=== PATIENT | male | born 1985 | race African-American/Black ===

== ENCOUNTER 2023-10-30 08:48 | Emergency (ER) | payer OTHER ==
[~2023-10-30] VITALS: Ht 175.3 cm; Wt 91.2 kg
[2023-10-30 08:56] VITALS: BP 173/106; PULSE 91; RESP 16; TEMP 98.7; O2SAT 95
[2023-10-30 09:16] VITALS: O2SAT 95
[2023-10-30] MEDS ORDERED: ONDA-188 SL (09:37)
[2023-10-30] MEDS ORDERED: HYDR-4004 PO (09:37)
[2023-10-30] MEDS: ONDANSETRON 4 MG ODT PO ONE (09:46)
[2023-10-30] MEDS: CLONIDINE HYDROCHLORIDE 0.1 MG TAB PO ONE (09:47)
[2023-10-30 10:17] VITALS: BP 146/98; PULSE 78; RESP 16; TEMP 98.3; O2SAT 99
[2023-10-30 10:36] LABS: FLU A ANTIGEN negative (NEGATIVE); FLU B ANTIGEN negative (NEGATIVE)
== END 2023-10-30 10:17 | disposition home or self-care (01) ==
LOC: MED 08:48
DX: A08.4 Viral intestinal infection, unspecified (principal); Z20.822 Contact with and (suspected) exposure to COVID-19; I10 Essential (primary) hypertension; Z79.899 Other long term (current) drug therapy
CPT/HCPCS: 87426; 87804; 99283; Q0162